=== PATIENT | male | born 2005 | race Two or more races ===

== ENCOUNTER 2025-08-16 07:05 | Inpatient (IN) | payer MEDICAID, OTHER ==
[~2025-08-16] VITALS: Ht 188 cm; Wt 84.6 kg
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
[2025-08-16] MEDS: HYDROcodone-ACET 5/325MG TAB PO ONE (09:20)
[2025-08-16 09:52] LABS: Alanine Aminotransferase 25 U/L (7-40); Alkaline Phosphatase 108 U/L (46-116); Anion Gap 12 (5-15); BUN/Creatinine Ratio 8.4 (10.0-20.0); Blood Urea Nitrogen 10 mg/dL (9-23); Calcium 9.5 mg/dL (8.7-10.4); Carbon Dioxide 27 mmol/L (20-31); Chloride 104 mmol/L (98-107); Glucose 89 mg/dL (74-106); Potassium 3.6 mmol/L (3.5-5.1); Sodium 143 mmol/L (136-145); Total Protein 8.0 g/dL (5.7-8.2)
[2025-08-16 09:53] LABS: Albumin 5.2 g/dL (3.2-4.8); Bilirubin, Total 1.6 mg/dL (0.2-1.0); Creatine Kinase IFCC 199 U/L (46-171)
[2025-08-16 10:18] LABS: Urine Protein, UAD TRACE (Negative)
[2025-08-16] MEDS: IOHEXOL 350 MG/ML 100ML IJ ONE ×2 (10:20→10:49)
[2025-08-16 10:39] LABS: Hematocrit 49.5 % (41.0-53.0); Hemoglobin 16.3 g/dL (13.5-17.5); Mean Corpuscular Hemoglobin 27.2 pg (28.0-32.0); Mean Corpuscular Volume 82.6 fL (80.0-100.0); Nucleated Red Blood Cells % 0.1 %
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
[2025-08-16 11:34] VITALS: PULSE 85; RESP 17; O2SAT 99
[2025-08-16] MEDS: SODIUM CHLORIDE 0.9% 1,000 ML IV ONE ×3 (11:45→14:00)
--- NOTE | 2025-08-16 11:51 | DVH ---
CTA Chest with intravenous contrast INDICATION: Chest pain. COMPARISON: None. TECHNIQUE: Multidetector spiral CTA of the chest was performed of the chest with 95 cc of omnipaque 3 50 intravenous contrast. PULMONARY ANGIOGRAPHY PROTOCOL was utilized using a bolus-tracking technique centered on the main pulmonary artery. Coronal and sagittal multiplanar and MIP reformats were perfo rmed. Radiation Dose : 1. Chest: CTDI volume is 20.9 mGy. Dose-length product is 877.4 mGy*cm The dose indicators for CT are the volume Computed Tomography (CT) Dose Index (CTDIvol) and the Dose Length Product (DLP), and are measured in units of mGy and mGy-cm, respectively. These indicators are not patient dose, but values generated from the CT scanner acquisition factors. The report includes radiation exposure data for exposures received during this examination. FINDINGS: Pulmonary artery: No large central, lobar or proximal segmental pulmonary embolus. Lower neck: Unremarkable thyroid. Lungs: No evidence of consolidation or suspicious lung nodule. Central airways: Patent. Pleura: No pneumothorax. No pleural effusions. Heart/Vascular Structures: The heart is normal in size. No pericardial effusion. Thoracic aorta is no rmal in caliber. No aneurysm or dissection. Lymph Nodes: No mediastinal or hilar lymphadenopathy. Esophagus:Grossly unremarkable. Musculoskeletal: Unremarkable. Body wall: Unremarkable. Upper abdomen: Unremarkable. IMPRESSION: Heterogeneously enhancing mass in the right lobe measuring 1.9 cm most compatible with a hemangioma. 1. No evidence of pulmonary embolism. 2. No acute or significant intrathoracic abnormalities.
[2025-08-16 12:29] LABS: Cannabinoid Screen, Urine Pos (NEGATIVE)
[2025-08-16] MEDS ORDERED: ONDANSETRON HCL 4 MG/2 ML VIAL IV PRN (12:30)
[2025-08-16] MEDS ORDERED: DOCUSATE SOD 100 MG CAP PO PRN (12:30)
[2025-08-16] MEDS ORDERED: HYDROcodone-ACET 5/325MG TAB PO PRN (12:30)
[2025-08-16] MEDS ORDERED: ACETAMINOPHEN 325 MG TAB PO PRN (12:30)
[2025-08-16] MEDS ORDERED: NITROGLYCERIN 0.4 MG SL TAB SL PRN (12:30)
[2025-08-16 12:34] LABS: Amphetamine Screen, Urine Neg (NEGATIVE); Barbiturate Scree,Urine Neg (NEGATIVE); Benzodiazephine Screen, Urine Neg (NEGATIVE); Cocaine Screen, Urine Neg (NEGATIVE); Opiate Scree,Urine Neg (NEGATIVE); Phencyclidine Screen, Urine Neg (NEGATIVE)
[2025-08-16] MEDS ORDERED: MORPHINE SULFATE 4 MG/ML SYR/VIAL IV PRN (12:45)
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
[2025-08-16 13:37] VITALS: BP 142/89; PULSE 96; RESP 17; TEMP 99.2; O2SAT 99
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
[2025-08-16 14:18] VITALS: PULSE 96; RESP 17; O2SAT 99
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
[2025-08-16 19:46] VITALS: PULSE 78
--- NOTE | 2025-08-27 12:13 | ECG ---
[facility] Test Date: 2025-08-16 Test Time: 11:23:57 Pat Name: MARYCRUZ PAEZ Department: Room: 0246T Gender: M [employer] Architect: JANAY : 2005 Requested By: NIKKI PAYNE Order Number: [id number] Reading MD: Measurements Intervals [place] Rate: 78 P: 87 IN: 155 QRS: 83 QRSD: 88 T: 41 QT: 362 QTc: 413 Interpretive Statements Sinus rhythm Please click the below link to view image of tracing.
== END 2025-08-16 16:38 | disposition left against medical advice (07) | DRG 144 ==
LOC: ER 07:05 → OVERFLOW 12:21 → TELE-EAST 13:38
PROVIDERS: ADMIT Nurse Practitioner Family; ATTEND Nurse Practitioner Family
DX: S29.9XXA Unspecified injury of thorax, initial encounter (principal); I21.A1 Myocardial infarction type 2; T79.6XXA Traumatic ischemia of muscle, initial encounter; E80.6 Other disorders of bilirubin metabolism; Z53.29 Procedure and treatment not carried out because of patient's decision for other reasons; V43.52XA Car driver injured in collision with other type car in traffic accident, initial encounter; Z87.09 Personal history of other diseases of the respiratory system; Y92.410 Unspecified street and highway as the place of occurrence of the external cause
CPT/HCPCS: 36415; 70460; 70491; 71275; 80053; 80307; 81001; 82550; 84484; 85025; 93005; 96360; 99291; G0378